=== PATIENT | male | born 1980 | race Caucasian/White ===

== ENCOUNTER 2017-06-21 21:23 | Emergency (ER) | payer SELFPAY ==
--- NOTE | 2017-06-22 00:55 | C.PDOC ---
History Of Present Illness 36 y/o male brought by EMS for public intoxication. Pt admits to drinking a lot of alcohol. Pt offers no further hx. Uncooperative for exam and further hx. Chief Complaint (Nursing): Substance Abuse History Per: Patient History/Exam Limitations: no limitations Onset/Duration Of Symptoms: Hrs Current Symptoms Are (Timing): Still Present Suicide/Self Injury Attempted (Context): None Modifying Factor(s): Alcohol Associated Symptoms: denies: Suicidal Thoughts Involuntary Hold By: Local Law Enforcement Recent travel outside of the [place]: No Past Medical History Reviewed: Historical Data, Nursing Documentation, Vital Signs Vital Signs: Last Vital Signs Temp 97.7 F 06/22/17 05:00 Pulse 70 06/22/17 05:00 Resp 16 06/22/17 05:00 BP 155/90 H 06/22/17 05:00 Pulse Ox 100 06/22/17 05:00 - Medical History PMH: No Chronic Diseases Surgical History: No Surg Hx Family History: States: No Known Family Hx - Social History Hx Alcohol Use: Yes Hx Substance Use: Yes - Immunization History Hx Tetanus Toxoid Vaccination: No Hx Influenza Vaccination: No Hx Pneumococcal Vaccination: No Review Of Systems Review Of Systems: ROS cannot be obtained secondary to pt's inabilty to answer questions. (Pt not paticipating and uncooperative) Physical Exam - Physical Exam Appears: Well, Non-toxic, No Acute Distress, Other (Awake; gregarious; laughing continuously; asking to be released; currently at 4 point retrain; ETOH on breath; slurred speech) Skin: Normal Color, Warm, Dry Head: Atraumatic, Normacephalic Eye(s): bilateral: Normal Inspection Oral Mucosa: Moist Neck: Supple Chest: Symmetrical, No Tenderness Cardiovascular: Rhythm Regular Respiratory: Normal Breath Sounds, No Decreased Breath Sounds, No Rales, No Rhonchi, No Wheezing Gastrointestinal/Abdominal: Soft, No Tenderness, No Distention Extremity: Normal ROM, No Tenderness, Other (No evidence of trauma ) Neurological/Psych: Oriented x3, Normal Speech, Normal Cognition ED Course And Treatment O2 Sat by Pulse Oximetry: 99 (RA) Pulse Ox Interpretation: Normal Disposition - Disposition Referrals: Alcoholics Anonymous [Outside] Disposition: HOME/ ROUTINE Disposition Time: 05:38 Condition: FAIR Instructions: Alcohol Intoxication (ED) Forms: [employer] ([place]an) Print Language: INDONESIAN - POA Present On Arrival: None - Clinical Impression Clinical Impression: Alcohol dependence - Scribe Statement The provider has reviewed the documentation as recorded by the Meryibashley Jimenez All medical record entries made by the Scribe were at my direction and personally dictated by me. I have reviewed the chart and agree that the record accurately reflects my personal performance of the history, physical exam, medical decision making, and the department course for this patient. I have also personally directed, reviewed, and agree with the discharge instructions and disposition.
[2017-06-22 05:01] VITALS: BP 155/90; PULSE 70; RESP 16; TEMP 97.7
[2017-06-22 05:40] VITALS: O2SAT 99
== END 2017-06-22 05:21 | disposition home or self-care (01) ==
LOC: C.ER 21:23
DX: F10.20 Alcohol dependence, uncomplicated (principal); Y90.9 Presence of alcohol in blood, level not specified